=== PATIENT | male | born 1960 | race Caucasian/White ===

== ENCOUNTER 2018-05-05 11:57 | Day surgery (SDC) | payer BC ==
[~2018-05-05] VITALS: Ht 188 cm; Wt 105.0 kg
[2018-05-05 12:48] VITALS: BP 118/72; PULSE 66; TEMP 98.7
[2018-05-05 15:55] VITALS: BP 142/77; PULSE 66; TEMP 97.4
--- NOTE | 2018-05-05 15:55 | NUR ---
Report received from Jahaira MANAGER PROGRAMMING. Pt returned via cart to [facility]. A&O. Tolerating ice chips. Denies complaints. VSS-documented. brought to room at this time. Bandaids x3 to abdomen, clean, dry and intact. HOB elevated and pt given muffin, water and coffee per request. Call light in reach.
[2018-05-05 16:10] VITALS: BP 139/87; PULSE 67
[2018-05-05 16:25] VITALS: BP 134/82; PULSE 78
[2018-05-05 16:40] VITALS: BP 136/77; PULSE 90
--- NOTE | 2018-05-05 17:18 | NUR ---
Pt has tolerated oral intake. Denies pain or nausea. VSS-see flowsheet. Pt states he is ready to go. IV removed, pressure applied with cottonball and coban. Discharge teaching completed, and pt verbalized understanding. Taken via wheelchair to exit. Pt to go home in private vehicle with driving.
== END 2018-05-05 17:18 | disposition home or self-care (01) ==
LOC: SDCO 11:57
DX: K40.91 Unilateral inguinal hernia, without obstruction or gangrene, recurrent (principal); K41.90 Unilateral femoral hernia, without obstruction or gangrene, not specified as recurrent; E78.00 Pure hypercholesterolemia, unspecified
CPT/HCPCS: A4314; C1781; J0690; J1100; J1885; J2405; J2704; J3010; J7120